=== PATIENT | male | born 1975 | race Caucasian/White ===

== ENCOUNTER → 2021-04-21 | Outpatient (CLI) | payer OTHER | LOC: HEART 5 14:33 | DX: R06.02 Shortness of breath (principal) | CPT/HCPCS: 94060; 94729 ==

== ENCOUNTER → 2021-05-07 | Outpatient (CLI) | payer OTHER | LOC: LAB 09:35 | DX: R06.02 Shortness of breath (principal) | CPT/HCPCS: 36415; 83880; 85379 ==

== ENCOUNTER → 2021-06-10 | Outpatient (CLI) | payer OTHER | LOC: NM 08:48 | DX: I20.8 Other forms of angina pectoris (principal); R06.02 Shortness of breath | CPT/HCPCS: ECHO; 93017; 93306; J2785 ==